=== PATIENT | male | born 1955 | race Caucasian/White ===

== ENCOUNTER → 2019-06-04 | Outpatient (CLI) | payer OTHER ==
[~2019-06-04] MED LIST: HYDROCODONE-AP1 EAC6 PO; NOHOMEMEDICATIONS; NORCO 5-325 TA1 EACH PO
== END ==
LOC: CAT 13:59
DX: Z13.6 Encounter for screening for cardiovascular disorders (principal); E78.00 Pure hypercholesterolemia, unspecified; I25.10 Atherosclerotic heart disease of native coronary artery without angina pectoris

== ENCOUNTER → 2019-06-12 | Outpatient (CLI) | payer OTHER, BC ==
[~2019-06-12] MED LIST changes: +AMLODIPINE BESY10 MG PO; +CHLORTHALIDONE25 MG PO; +LISINOPRIL2.5 MG PO; +PRILOSEC OTC20 MG PO; +ROSUVASTATIN CA20 MG PO
== END ==
LOC: SJCVC 12:59
DX: R94.31 Abnormal electrocardiogram [ECG] [EKG] (principal); R93.1 Abnormal findings on diagnostic imaging of heart and coronary circulation; R09.89 Other specified symptoms and signs involving the circulatory and respiratory systems; I10 Essential (primary) hypertension; E78.5 Hyperlipidemia, unspecified; Z89.512 Acquired absence of left leg below knee; Z79.899 Other long term (current) drug therapy

== ENCOUNTER → 2019-06-17 | Outpatient (CLI) | payer OTHER, BC | LOC: SJCVCIMAG 09:05 | DX: I35.1 Nonrheumatic aortic (valve) insufficiency (principal); R94.31 Abnormal electrocardiogram [ECG] [EKG]; R93.1 Abnormal findings on diagnostic imaging of heart and coronary circulation ==

== ENCOUNTER → 2019-06-19 | Outpatient (CLI) | payer OTHER, BC | LOC: SJCVCIMAG 09:54 | DX: I65.23 Occlusion and stenosis of bilateral carotid arteries (principal); I25.10 Atherosclerotic heart disease of native coronary artery without angina pectoris; R94.31 Abnormal electrocardiogram [ECG] [EKG]; I10 Essential (primary) hypertension ==

== ENCOUNTER → 2019-07-04 | Outpatient (CLI) | payer OTHER, BC ==
[~2019-07-04] VITALS: Ht 185.4 cm; Wt 94.5 kg
[2019-07-04 07:29] VITALS: BP 132/75
--- NOTE | 2019-07-04 08:01 | EKG ---
[facility] [place] [address] ELECTROCARDIOGRAM REPORT Name: DARNELL WAY Room #: REG [facility].#: [id number] Admission: 07/04/19 Attend Phys: Nigel Hollingsworth MD, Discharge: Date of : 51 Report #: [id number] THIS REPORT FOR: cc: Fercho Martin MD, Rene P. MD Lundgren,Nigel Matt MD [facility] ~ THIS REPORT FOR: //name// [facility] Test Date: 2019-07-04 Test Time: 07:19:50 Pat Name: DARNELL WAY Department: Room: Gender: Cloth Neutralizer: Nina NEGRETE : 1955 Requested By: Nigel Hollingsworth Order Number: [id number] MD: Nigel Hollingsworth Measurements Intervals Dale Rate: 81 P: 18 OK: 211 QRS: 23 QRSD: 117 T: 68 QT: 387 QTc: 450 Interpretive Statements Sinus rhythm Possible inferior infarct, age indeterminate Compared to ECG 07/22/2014 20:49:10 Inferior Q waves are more prominent Electronically Signed On 07-04-2019 7:59:51 CDT by Nigel Hollingsworth [email or web address] <ELECTRONICALLY SIGNED> By: Nigel Hollingsworth MD, [facility] 07/04/19 0759 8 8 Nigel Hollingsworth MD, [facility] /EPI
--- NOTE | 2019-07-04 09:25 | CATHLAB ---
[facility] [place] [address] INVASIVE PROCEDURE REPORT Name: CHEY WAYDona Room #: REG [facility].#: [id number] Admission: 07/04/19 Attend Phys: Nigel Hollingsworth MD, Discharge: Date of : 51 Report #: [id number] THIS REPORT FOR: cc: Fercho Martin MD, Rene P. MD Lundgren, Craig H. MD [facility] ~ APPROVED REPORT Study performed: 07/04/2019 07:48:05 Patient Details Patient Status: Out-Patient Room #: The patient is a 64 year-old male Event Personnel Nigel Hollingsworth Pretzel Twisting Machine Operator, Vashti Valadez RN RN, Geeta Matute, Monica Blevins RTMario Alberto Scrub Procedures Performed Art Access - R femoral artery* 82616 Initial Mod Sed Same Phys/QHP Gr5y [id number] 47925 Mod Sed Same Phys/QHP Ea [id number] Left Heart Cath w/or w/o Coronaries 1415942 C FFR 4529331 FFR Hemostasis w/ Mynx Indication Positive stress test, Chest pain Procedure Narrative The patient was brought electively to the Cardiac Catheterization Laboratory and was prepped and draped in a sterile manner. The Right Groin^ was infiltrated with 1% Lidocaine subcutaneous anesthesia. A PINNACLE 6FR Sheath #[id number] sheath was inserted into the RFA^. Coronary angiography was performed using coronary diagnostic catheters. The right coronary system was accessed and visualized with a JR 4 catheter. The left coronary system was accessed and visualized with a JL 4 catheter. The left ventricle was accessed and visualized with a Pigtail catheter. Left ventricular/Aortic Valve gradient assessed via catheter pullback. Left ventriculogram was performed in CAMILO projection. Closure device was deployed with a 6 Fr Mynx. Hemostasis was obtained with manual pressure following sheath removal without any complications. The patient tolerated the procedure well and there were no complications associated with the procedure. There was no hematoma. [facility] [address] [place] [address] INVASIVE PROCEDURE REPORT Name: DARNELL WAY Room #: REG [facility]#: [id number] Admission: 07/04/19 Attend Phys: Nigel Hollingsworth, Discharge: Date of : 51 Report #: [id number] Intraoperative Conscious Sedation Sedation start time: 08:03 Case end Time: 08:46 Fentanyl 50 mcg Versed 1 mg Fluoro Time: 2.57 minutes Dose: DAP 8800.00 cGycm2 1094 mGy Contrast Type and Amount: Omnipaque 185 ml Coronary Angiography The patient's coronary anatomy is right dominant. Diagnostic Cath Left Main Large, normal left main LAD Moderate variable proximal LAD stenosis of 50 to 60%. FFR 0.94 Diagonal 1 Small first diagonal branch, angiographically normal Diagonal 2 Small second diagonal branch, angiographically normal Circumflex Large but nondominant circumflex comprised of a single marginal branch 40-50% proximal circumflex stenosis OM1 50% proximal OM1 stenosis Right Coronary Occluded mid right coronary with extensive [id number] collateralization Left Ventriculography The left ventricle is normal in size with abnormal contractility. The left ventricular ejection fraction is estimated to be 40-45%. Left ventricular wall motion abnormalities are present. There is no mitral insufficiency. Hypokinesis involving the base and mid portions of the inferior wall Hemodynamics The aortic pressure is 144/68 mmHg with a mean of 100 mmHg. The left ventricular pressure is 144/1 mmHg with a mean of mmHg. The left ventricular end diastolic pressure is 22 mmHg. Conclusion 1. Mild to moderate left ventricular dysfunction with hypokinesis involving the inferior wall. Ejection fraction 45% 2. Normal left main 3. Moderate variable proximal LAD stenosis. FFR 0.94 4. Mild to moderate proximal circumflex and OM1 branch stenoses 5. Occluded mid right coronary with extensive [id number] [facility] [address] [place] [address] INVASIVE PROCEDURE REPORT Name: SEAMUSDARNELL Room #: [facility]#: [id number] Admission: 07/04/19 Attend Phys: Nigel Hollingsworth, Discharge: Date of : 51 Report #: [id number] collateralization Recommendations [facility] <ELECTRONICALLY SIGNED> By: Nigel Hollingsworth MD, [facility] 07/04/19923 3 3 Nigel Hollingsworth MD, [facility] /INF
== END ==
LOC: CATH 06:36
DX: I25.10 Atherosclerotic heart disease of native coronary artery without angina pectoris (principal); I51.9 Heart disease, unspecified; I10 Essential (primary) hypertension; E78.5 Hyperlipidemia, unspecified; K21.9 Gastro-esophageal reflux disease without esophagitis; E66.9 Obesity, unspecified; Z68.27 Body mass index [BMI] 27.0-27.9, adult

== ENCOUNTER → 2019-09-17 | Outpatient (CLI) | payer OTHER, BC | LOC: SJCVC 10:43 | PROVIDERS: ATTEND Internal Medicine | DX: R94.31 Abnormal electrocardiogram [ECG] [EKG] (principal); I25.10 Atherosclerotic heart disease of native coronary artery without angina pectoris; I25.5 Ischemic cardiomyopathy; I10 Essential (primary) hypertension; E78.5 Hyperlipidemia, unspecified; I65.23 Occlusion and stenosis of bilateral carotid arteries; Z89.512 Acquired absence of left leg below knee; Z90.49 Acquired absence of other specified parts of digestive tract; Z79.899 Other long term (current) drug therapy ==

== ENCOUNTER → 2020-09-16 | Outpatient (CLI) | payer OTHER | LOC: SJCVC 15:55 | PROVIDERS: ATTEND Internal Medicine | DX: R94.31 Abnormal electrocardiogram [ECG] [EKG] (principal); I49.3 Ventricular premature depolarization; I25.10 Atherosclerotic heart disease of native coronary artery without angina pectoris; I25.5 Ischemic cardiomyopathy; I10 Essential (primary) hypertension; I65.23 Occlusion and stenosis of bilateral carotid arteries; E78.5 Hyperlipidemia, unspecified; I08.0 Rheumatic disorders of both mitral and aortic valves; E11.9 Type 2 diabetes mellitus without complications; Z82.49 Family history of ischemic heart disease and other diseases of the circulatory system; Z79.4 Long term (current) use of insulin; Z79.899 Other long term (current) drug therapy; Z72.89 Other problems related to lifestyle ==

== ENCOUNTER → 2021-03-18 | Outpatient (CLI) | payer OTHER | LOC: SJCVC 15:11 | PROVIDERS: ATTEND Internal Medicine | DX: R94.31 Abnormal electrocardiogram [ECG] [EKG] (principal); I48.92 Unspecified atrial flutter; I25.10 Atherosclerotic heart disease of native coronary artery without angina pectoris; I35.0 Nonrheumatic aortic (valve) stenosis; I25.5 Ischemic cardiomyopathy; I10 Essential (primary) hypertension; E78.5 Hyperlipidemia, unspecified; I65.23 Occlusion and stenosis of bilateral carotid arteries; E11.9 Type 2 diabetes mellitus without complications; Z89.512 Acquired absence of left leg below knee; Z72.89 Other problems related to lifestyle; Z79.899 Other long term (current) drug therapy; Z82.49 Family history of ischemic heart disease and other diseases of the circulatory system ==

== ENCOUNTER → 2021-05-17 | Day surgery (SDC) | payer OTHER ==
[~2021-05-17] VITALS: Ht 182.9 cm; Wt 104.3 kg
[~2021-05-17] MED LIST changes: +ASA81BEC PO; +BENICAR20 MG PO; +PROTONIX 20 MG20 MG PO; +VITAMIN D31250 MCG PO
--- NOTE | ~2021-05-17 | O ---
[facility] [place] [address] OPERATIVE REPORT Name: CHEY WAYDona Room #: REG [facility].#: [id number] Admission: 05/17/21 Attend Phys: Sofy Mccoy, Discharge: Date of : 51 Report #: [id number] THIS REPORT FOR: cc: Fercho Martin MD, Rene P. MD Deardorff, Valerie A. MD ~ DATE OF SERVICE: 05/17/2021 PREOPERATIVE DIAGNOSIS: Left carpal tunnel. POSTOPERATIVE DIAGNOSIS: Left carpal tunnel. PROCEDURE PERFORMED: Left endoscopic carpal tunnel release. SURGEON: Sofy Mccoy MD TYPE OF ANESTHESIA: General mask anesthesia. ESTIMATED BLOOD LOSS: Minimal. TOURNIQUET TIME: 13 minutes. COMPLICATIONS: None. CONDITION: Stable. DISPOSITION: To recovery room. INDICATIONS: The patient is a 65-year-old male with the above-mentioned diagnoses. He elects for operative treatment. The risks, benefits, alternatives, and complications were discussed including, but not limited to, infection, damage to vessels or nerves, incomplete relief or worsening of any symptoms. Informed consent was obtained. The correct extremity was identified and labeled myself. DESCRIPTION OF PROCEDURE: The patient was brought to the operating room and placed in supine position. Upper extremity was elevated, exsanguinated and the tourniquet inflated. The entire procedure was done with the aid of 3.5x loupe magnification. Next, an oblique incision was made at the distal edge of the carpal tunnel. The fat was elevated off the fascia. The fascia was carefully incised. Next, a transverse incision was made at the ulnar border of the palmaris longus tendon, a few millimeters proximal to distal wrist crease. Dissection was carried down through subcutaneous tissue with tenotomy scissors. The antebrachial fascia was identified and incised. It was then incised for about a centimeter proximal. Next, an elevator was placed through the carpal tunnel and any synovial tissue was elevated off the undersurface of the [address] [address] OPERATIVE REPORT Name: DARNELL WAY Room #: REG [facility].Mario Alberto.#: [id number] Admission: 05/17/21 Attend Phys: Sofy Mccoy, Discharge: Date of : 51 Report #: [id number] transverse carpal ligament. Next, a blunt trocar and cannula was inserted with the wrist in maximal extension and digital compression distally. Blunt trocar was removed. The camera was inserted. The nice transverse fibers of the undersurface of the transverse carpal ligament were visualized the entire length. The hook blade was brought in distally and the transverse carpal was dissected proximally all the way from the antebrachial fascia of the forearm all the way through the fat in the palm. The nerve looked to be in excellent condition. Approximately 1 cm of the transverse carpal ligament remained intact distally. This was partially incised under direct visualization and then the blunt trocar and cannula were again inserted. I was unable to see any more fibers of the transverse carpal ligament. A [place] elevator was placed through the carpal tunnel and no remnants of the transverse carpal ligament remained. The wounds were thoroughly irrigated. The nerve looked to be in excellent condition. The wounds were closed with 4-0 nylon suture. Wounds dressed with Adaptic and sterile gauze after infiltrating subcutaneous tissue with approximately 5 mL of 0.25% Marcaine. All fingers were pink with brisk capillary refill at the conclusion of case after deflation of tourniquet. All sponge and needle counts were correct. The patient transferred to postoperative recovery room in stable condition By: 1244 1301 Sofy Mccoy MD /nt
[2021-05-17 10:26] VITALS: BP 132/73
[2021-05-17 12:44] VITALS: BP 132/73
[2021-05-17 12:45] VITALS: BP 132/73
== END | disposition home or self-care (01) ==
LOC: OR 09:31
PROVIDERS: ATTEND Orthopaedic Surgery Hand Surgery
DX: G56.02 Carpal tunnel syndrome, left upper limb (principal); I10 Essential (primary) hypertension; E78.5 Hyperlipidemia, unspecified; K21.9 Gastro-esophageal reflux disease without esophagitis; Z98.890 Other specified postprocedural states; Z79.899 Other long term (current) drug therapy; Z90.49 Acquired absence of other specified parts of digestive tract
CPT/HCPCS: 50010; 50101; 50386; 56526; 56969; 57006; 57091; 57178; 62110; 62900; 70005